=== PATIENT | male | born 1990 | race Caucasian/White ===

== ENCOUNTER 2021-04-30 15:21 | Emergency (ER) | payer MEDICAID ==
[~2021-04-30] VITALS: Ht 180.3 cm; Wt 79.5 kg
[2021-04-30 15:30] VITALS: BP 110/74
--- NOTE | 2021-04-30 15:58 | NUR ---
REFUSING COVID SWAB, COMBATIVE
--- NOTE | 2021-04-30 17:04 | NUR ---
Verified triage note by Petrona LEWIS, No changes needed to triage.
== END 2021-04-30 18:26 | disposition home or self-care (01) ==
LOC: ER 15:22 → EDBD 15:22 → ER 18:26
DX: B34.9 Viral infection, unspecified (principal); Z20.822 Contact with and (suspected) exposure to COVID-19
CPT/HCPCS: 87635; 99283; C9803